=== PATIENT | female | born 1985 | race American Indian/Alaskan Native ===

== ENCOUNTER 2019-09-14 10:53 | Emergency (ER) | payer OTHER, MEDICAID ==
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
[2019-09-14 11:51] VITALS: BP 155/110
== END 2019-09-14 11:57 | disposition home or self-care (01) ==
LOC: ED 10:53
DX: S83.8X2A Sprain of other specified parts of left knee, initial encounter (principal); S39.012A Strain of muscle, fascia and tendon of lower back, initial encounter; I10 Essential (primary) hypertension; Z79.899 Other long term (current) drug therapy; V89.2XXA Person injured in unspecified motor-vehicle accident, traffic, initial encounter; Y93.89 Activity, other specified; Y92.488 Other paved roadways as the place of occurrence of the external cause; Y99.8 Other external cause status
CPT/HCPCS: 99282